=== PATIENT | female | born 1975 | race Two or more races ===

== ENCOUNTER 2019-01-26 08:01 | Emergency (ER) | payer MEDICAID ==
[~2019-01-26] VITALS: Ht 144.8 cm; Wt 67.6 kg
[2019-01-26 08:14] VITALS: Ht 144.8 cm; Wt 67.6 kg
[2019-01-26 10:40] VITALS: BP 110/64
== END 2019-01-26 10:40 | disposition home or self-care (01) ==
LOC: ED 08:01
DX: M19.90 Unspecified osteoarthritis, unspecified site (principal); N39.0 Urinary tract infection, site not specified; Z98.890 Other specified postprocedural states
CPT/HCPCS: J1885